=== PATIENT | male | born 1975 | race Two or more races ===

== ENCOUNTER 2022-03-26 20:55 | Emergency (ER) | payer OTHER ==
[~2022-03-26] VITALS: Ht 185.4 cm; Wt 127.3 kg
[2022-03-26 21:31] VITALS: BP 167/80
[2022-03-26] MEDS ORDERED: HYDROCODONE/ACETAMINOPHEN 5-325 MG TABLET PO ONE (22:45)
[2022-03-26] MEDS ORDERED: KETOROLAC TROMETHAMINE 30 MG/ML VIAL IM ONE (22:45)
[2022-03-27] MEDS ORDERED: CYCL-448 PO (00:08)
== END 2022-03-27 00:45 | disposition home or self-care (01) ==
LOC: EMS 20:58
DX: M54.50 Low back pain, unspecified (principal); R45.1 Restlessness and agitation; F10.129 Alcohol abuse with intoxication, unspecified; I10 Essential (primary) hypertension; Z98.890 Other specified postprocedural states
CPT/HCPCS: 99283; 36415; 72100; 96372; J1885